=== PATIENT | female | born 2000 | race Caucasian/White ===

== ENCOUNTER 2024-08-19 07:09 | Inpatient (IN) | payer OTHER ==
[2024-08-19] MEDS ORDERED: AMPICILLIN SODIUM 2 GM VIAL ONE (08:04)
[2024-08-19] MEDS: DEXTROSE 5%-LACTATED RINGERS 1,000 ML IV SCH (08:10)
[2024-08-19] MEDS: AMPICILLIN - 2 GM in SODIUM CHLORIDE 100 ML IVPB ONE (08:25)
[2024-08-19 08:49] LABS: BASO % 0.2 % (0-2.0); EOS % 0.4 % (0-4.5); HEMATOCRIT 37.4 % (32.4-45.2); HEMOGLOBIN 12.6 GM/dL (10.7-15.3); LYMPH % 15.2 % (8-40); MCH 28.4 pg (25.7-33.7); MCHC 33.6 g/dl (32.0-36.0); MEAN CELL VOLUME 84.6 fl (80-96); MEAN PLT VOLUME 9.2 fl (7.5-11.1); MONO % 6.2 % (3.8-10.2); PLATELET COUNT 169 10^3/uL (134-434); RBC 4.42 M/mm3 (3.60-5.2); RDW 14.6 % (11.6-15.6); WHITE BLOOD COUNT 10.6 K/mm3 (4.0-10.0)
[2024-08-19 08:55] LABS: INR 0.9 (0.83-1.09); PROTHROMBIN TIME (PATIENT) 10.2 SEC (9.7-13.0)
[2024-08-19 08:58] LABS: ACTIVATED PTT 28.5 SECONDS (25.2-36.5)
[2024-08-19 09:23] LABS: POTASSIUM 4.1 mmol/L (3.5-5.1)
[2024-08-19 09:24] LABS: BLOOD UREA NITROGEN 9.9 mg/dL (7-18); CALCIUM 8.9 mg/dL (8.5-10.1)
[2024-08-19 09:27] LABS: CREATININE 0.5 mg/dL (0.55-1.3)
[2024-08-19 09:30] VITALS: BMI 35.4
[2024-08-19] MEDS: LACTATED RINGERS SOLUTION 1,000 ML/1,000 ML INFUS.BAG IV SCH (10:15)
[2024-08-19] MEDS ORDERED: NALOXONE HCL 0.4 MG/ML VIAL IVPUSH PRN (10:41)
[2024-08-19] MEDS ORDERED: FENTANYL CITRATE/PF 50 MCG/ML VIAL ONE (10:42)
[2024-08-19] MEDS ORDERED: BUPIVACAINE HCL/PF 0.25% (2.5MG/ML) 10 ML VIAL ONE (10:43)
[2024-08-19] MEDS ORDERED: FENTANYL/BUPIVACAINE/NS/PF - PCEA - 50 ML DISP.SYRIN EP ONE (10:45)
[2024-08-19] MEDS: FENTANYL/BUPIVACAINE/NS/PF - PCEA - 50 ML DISP.SYRIN EP SCH (11:03)
[2024-08-19 11:09] LABS: COCAINE, UR NEGATIVE (NEGATIVE); METHADONE, UR NEGATIVE (NEGATIVE); PHENCYCLIDINE,URINE NEGATIVE (NEGATIVE); URINE AMPHETAMINES NEGATIVE (NEGATIVE)
[2024-08-19 11:11] LABS: URINE BARBITURATES NEGATIVE (NEGATIVE); URINE BENZODIAZEPINES NEGATIVE (NEGATIVE)
[2024-08-19 11:12] LABS: OPIATES, URI NEGATIVE (NEGATIVE)
[2024-08-19 11:36] LABS: HIV INTERPRETATION NEGATIVE (NEGATIVE)
[2024-08-19] MEDS ORDERED: AMPICILLIN SODIUM 1 GM VIAL ONE (11:57)
[2024-08-19] MEDS: AMPICILLIN - 1 GM in SODIUM CHLORIDE 100 ML IVPB SCH (12:30)
[2024-08-19] MEDS ORDERED: OXYTOCIN 20 UNITS in 0.9% NS 20 UNIT/1,000 ML INFUS.BAG IV ONE (15:14)
[2024-08-19] MEDS ORDERED: LIDOCAINE HCL 1% PRESERVATIVE FREE - 30ML VIAL ONE (15:14)
[2024-08-19] MEDS: OXYTOCIN 20 UNITS in 0.9% NS 20 UNIT/1,000 ML INFUS.BAG IV SCH (15:53)
[2024-08-19 16:23] LABS: CORD BASE EXCESS -3.9 mmol/L (0-2); CORD BASE EXCESS -5.4 mmol/L (0-2); CORD HCO3 22.5 mmHg (20-29); CORD HCO3 24.4 mmHg (20-29); CORD PCO2 45.6 mmHg (30-78); CORD PCO2 65.4 mmHg (30-78); CORD pH 7.19 (7.14-7.44); CORD pH 7.311 (7.14-7.44)
[2024-08-19] MEDS ORDERED: oxyCODONE HCL 5 MG TABLET PO PRN (16:25)
[2024-08-19] MEDS ORDERED: BENZOCAINE 28 GM HEMORRHOIDAL OINTMENT TP PRN (16:25)
[2024-08-19] MEDS ORDERED: BISACODYL 10 MG SUPP.RECT RC PRN (16:25)
[2024-08-19] MEDS ORDERED: METHYLERGONOVINE MALEATE 0.2 MG/1 ML AMP IM PRN (16:25)
[2024-08-19] MEDS ORDERED: IBUPROFEN 600 MG TABLET (FP) PO ONE (18:40)
[2024-08-19] MEDS ORDERED: FERROUS SO4 325 MG TABLET (FP) ONE (18:40)
[2024-08-19] MEDS: FERROUS SO4 325 MG TABLET (FP) PO SCH (18:45)
[2024-08-19] MEDS: IBUPROFEN 600 MG TABLET (FP) PO PRN (18:45)
[2024-08-19 19:44] VITALS: RESP 18
[2024-08-19] MEDS: BENZOCAINE 20% 57 GM BOTTLE TP PRN (20:18)
[2024-08-19] MEDS: WITCH HAZEL 50% (TUCKS) 40 PAD/JAR PAD TP PRN (20:18)
[2024-08-20 07:43] LABS: BASO % 0.2 % (0-2.0); EOS % 1.1 % (0-4.5); HEMATOCRIT 36.7 % (32.4-45.2); HEMOGLOBIN 12.3 GM/dL (10.7-15.3); LYMPH % 18.4 % (8-40); MCH 28.4 pg (25.7-33.7); MCHC 33.4 g/dl (32.0-36.0); MEAN PLT VOLUME 9.3 fl (7.5-11.1); MONO % 7.5 % (3.8-10.2); NEUT % 72.8 % (42.8-82.8); PLATELET COUNT 167 10^3/uL (134-434); RBC 4.32 M/mm3 (3.60-5.2); RDW 15.4 % (11.6-15.6); WHITE BLOOD COUNT 9.4 K/mm3 (4.0-10.0)
[2024-08-20] MEDS: PRENATAL VITAMINS W/ FOLIC ACID TABLET (FP) PO SCH (09:25)
[2024-08-20] MEDS ORDERED: SENNOSIDES/DOCUSATE COMBO (SENNA PLUS) TABLET (UD) PO PRN (22:00)
[2024-08-20] MEDS: ACETAMINOPHEN 325 MG TABLET (FP) PO PRN (23:48)
[2024-08-21 12:36] VITALS: BP 111/65; PULSE 80; TEMP 98.2
== END 2024-08-21 15:20 | disposition home or self-care (01) | DRG 560 ==
LOC: JDEL 07:09 → JLDR 07:29 → J3W 20:02
PROVIDERS: ADMIT Obstetrics & Gynecology; ATTEND Obstetrics & Gynecology
PROC: 0KQM0ZZ Repair Perineum Muscle, Open Approach (ICD-10-PCS; principal; 2024-08-19)
PROC: 10E0XZZ Delivery of Products of Conception, External Approach (ICD-10-PCS; 2024-08-19)
DX: O69.2XX0 Labor and delivery complicated by other cord entanglement, with compression, not applicable or unspecified (principal); O70.1 Second degree perineal laceration during delivery; Z3A.40 40 weeks gestation of pregnancy; Z37.0 Single live birth
CPT/HCPCS: 36415; 36600; 59409; 80048; 80307; 82803; 85025; 85610; 85730; 86780; 86803; 86850; 86900; 86901; 87389; 93970-TC